=== PATIENT | male | born 1990 | race Asian ===

== ENCOUNTER → 2023-08-31 | Outpatient (CLI) | payer OTHER ==
[2023-09-01 05:08] LABS: MUMPS VIRUS IGG ANTIBODY 13.7 AU/mL (Immune >10.9)
== END | disposition home or self-care (01) ==
LOC: LABMN 11:39
PROVIDERS: ATTEND Internal Medicine
DX: Z02.1 Encounter for pre-employment examination (principal)
CPT/HCPCS: 86706; 86735; 86762; 86765; 86787